=== PATIENT | female | born 1960 | race Caucasian/White ===

== ENCOUNTER 2016-12-26 09:42 | Emergency (ER) | payer MEDICAID ==
[~2016-12-26] VITALS: Ht 160 cm; Wt 80.0 kg
[2016-12-26 09:46] VITALS: Ht 160 cm; Wt 80.0 kg
[2016-12-26] MEDS ORDERED: KETOROLAC 60 MG INJ IM STA (10:38)
[2016-12-26] MEDS ORDERED: NAPR-260 PO (10:42)
[2016-12-26] MEDS ORDERED: PRED20TA PO (10:42)
--- NOTE | 2016-12-26 10:52 | ERD ---
ER Documentation Chief Complaint Date/Time DATE: 12/26/16 TIME: 10:45 Chief Complaint rt arm pain x 3 days , no trauma HPI 56-year-old female complaining of right shoulder pain since yesterday morning. Patient is stated that she experienced pain in the right shoulder upon awake. She is unable to move her right shoulder because of pain. She usually sleep on her left side. 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 She took naproxen and diclofenac last night without relief of pain. History of hypertension and high cholesterol. Patient also reports history of high uric acid, but is not currently taking any uric acid lowering medications. Denies fever or chills. Denies trauma. ROS All systems reviewed and are negative except as per history of present illness. Medications Home Meds Active Scripts Prednisone* (Prednisone*) 20 Mg Tab, 60 MG PO DAILY for 3 Days, TAB Prov:SUKI JUARES. DIRECTOR OF ENGINEERING 12/26/16 Naproxen* (Naprosyn*) 500 Mg Tablet, 500 MG PO BID Y for PAIN AND/OR INFLAMMATION, #30 TAB Prov:SUKI JUARES. DIRECTOR OF ENGINEERING 12/26/16 PMhx/Soc History of Surgery: Yes (GALL BLADDER) Anesthesia Reaction: No Hx Neurological Disorder: No Hx Respiratory Disorders: Yes (HTN, HDL) Hx Cardiac Disorders: No Hx Psychiatric Problems: No Hx Miscellaneous Medical Probl: No Hx Alcohol Use: No Hx Substance Use: No Hx Tobacco Use: No Smoking Status: Never smoker Physical Exam Vitals Vital Signs Date Time Temp Pulse Resp B/P Pulse Ox O2 Delivery O2 Flow Rate FiO2 12/26/16 09:46 98.1 78 16 121/69 98 Physical Exam General: Well-developed, well-nourished, conscious and coherent, in no distress Skin: Warm and dry without rash, good texture and turgor Head: Normocephalic without evidence of trauma Eyes: Sclera and conjunctivae normal; pupils equal, round, and reactive to light; extraocular movements are intact Neck: Supple without meningismus or adenopathy. Carotids are equal. Trachea midline. No bruits or JVD Chest: Normal AP diameter, good expansion without retractions. Nontender. Lungs are clear to auscultate bilaterally with good tidal volume Heart: Regular rate and rhythm. No murmur, rub, or gallop heard Abdomen: Soft and nontender without masses, guarding, or rebound. Bowel sounds are active. No hepatosplenomegaly Back: Without spinal or CVA tenderness Extremities: Extremely limited range of motion of the right shoulder due to pain, tenderness on the lateral aspect of the joint, no erythema or swelling, not warm to touch. Good strength bilaterally. No clubbing, cyanosis, or edema. Peripheral pulses are intact. Sensation intact Neuro: Alert and oriented. Mental status normal, speech clear. Cranial nerves grossly intact Results 24 hrs Current Medications Medications (Trade) Dose Ordered Sig/Dmitriy Route PRN Reason Start Time Stop Time Status Last Admin Dose Admin Ketorolac Tromethamine (Toradol) 60 mg ONCE STAT IM 12/26/16 10:38 12/26/16 10:40 DC Procedures/MDM Well-appearing 56-year-old female presented ED with right shoulder pain 2 days. Patient is history of presentation is consistent with shoulder bursitis. Low suspicion for gout, septic joint, cellulitis, or fractures or dislocations. Patient given Toradol 60 mg IM in the ED for pain. Patient reports improvement in pain after Toradol. Patient advised to follow-up with PCP for [facility] referral. Patient appears well, stable for discharge and outpatient management. Medical decision making shared with patient and family. Education provided to patient and family. Patient and family expressed understanding of the plan. Medications on discharge: Naproxen, prednisone. Follow-up: Primary care provider in 2-3 days or return to ED if worse. Departure Diagnosis: Primary Impression: Bursitis of shoulder, right Condition: Good Patient Instructions: Bursitis [facility] Usted se cardoso hecho un examen mdico de control que le indica que no est en gabriella condicin que requiera tratamiento urgente en el Departamento de Emergencia. Un estudio ms profundo y el tratamiento de harrison condicin pueden esperar sin ningn riesgo hasta que usted sea atendida/o en el consultorio de harrison mdico o gabriella cl martinez. Es responsabilidad suya arreglar gabriella marcial para el seguimiento del yolanda. MANEJO DE CONDICIONES NO URGENTES EN EL FUTURO 1) Si usted tiene un mdico de atencin primaria: Usted debera llamar a harrison mdico de atencin primaria antes de venir al departamento de emergencia. Despus de las horas de consultorio, harrison doctor o harrison asociado/a est disponible por telfono. El mdico o enfermero de simón en el servicio telefnico puede asesorarle por yunier medio para atender el problema, o yolanda contrario se puede programar gabriella marcial. 2) Si usted no tiene un mdico de atencin primaria: Llame al mdico o clnica de referencia que aparece abajo beverly las horas de consultorio para hacer gabriella marcial para que le vean. CLINICAS: [facility] [phone] [facility] [phone] [facility] [phone] [place] [id number] [phone] [place] [id number] [phone] [facility] [phone] [facility] () Usted se cardoso hecho un examen mdico de control que le indica que no est en gabriella condicin que requiera tratamiento urgente en el Departamento de Emergencia. Un estudio ms profundo y el tratamiento de harrison condicin pueden esperar sin ningn riesgo hasta que usted sea atendida/o en el consultorio de harrison mdico o gabriella cl martinez. Es responsabilidad suya arreglar gabriella marcial para el seguimiento del yolanda. MANEJO DE CONDICIONES NO URGENTES EN EL FUTURO 1) Si usted tiene un mdico de atencin primaria: Usted debera llamar a harrison mdico de atencin primaria antes de venir al departamento de emergencia. Despus de las horas de consultorio, harrison doctor o harrison asociado/a est disponible por telfono. El mdico o enfermero de simón en el servicio telefnico puede asesorarle por yunier medio para atender el problema, o yolanda contrario se puede programar gabriella marcial. 2) Si usted no tiene un mdico de atencin primaria: Llame al mdico o condado institucions de referencia que aparece abajo beverly las horas de consultorio para hacer gabriella marcial para que le vean. SI USTED NO PUEDE PAGAR PARA LESLIE UN MEDICO puede ir a: [facility] [address] [place] [address] [facility] [address] [place] [address] [facility] [address] [place] [address] PARA [facility] [address] [place], [place] [id number] Additional Instructions: Llame al doctor MAANA y cruz gabriella MARCIAL PARA DENTRO DE 2-3 MCKEON.Dgale a la secretaria que nosotros le instruimos hacer esta marcial.Avise o llame si harrison condicin se empeora antes de la marcial. Regresa aqui si peor o no mejor. Specialist:Usted tiene gabriella condicin mdica que requiere que vanessa a un especialista dentro de los prximos 1-2 vega.POR FAVOR,CON HARRISON SEGUIMIENTO DE PRIMARIA PHSICIAN refferal. SI USTED NO TIENE UN MDICO GENERAL Y / O USTED NO PUEDE PAGAR leslie a un mdico,los siguientes bearden RECURSOS sido suministrado a usted. ES HARRISON RESPONSABILIDAD PARA SER VISTOS POR EL ESPECIALISTA: SUKI JUARES NP December 26, 2016 10:52
[2016-12-26 11:47] VITALS: BP 134/75; PULSE 75; RESP 19; TEMP 98.2
== END 2016-12-26 11:47 | disposition home or self-care (01) ==
LOC: FTE 09:42
DX: M75.51 Bursitis of right shoulder (principal); I10 Essential (primary) hypertension
CPT/HCPCS: 96372; J1885; Z7502

== ENCOUNTER 2018-04-13 17:42 | Emergency (ER) | END 2018-04-13 20:28 | disposition home or self-care (01) ==